=== PATIENT | male | born 1975 | race Caucasian/White ===

== ENCOUNTER → 2022-02-03 | Outpatient (CLI) | payer OTHER ==
[2022-02-03 09:21] LABS: HEMOGLOBIN 15.1 gm/dl (14.0-17.5); RED BLOOD COUNT 5.28 M/UL (4.20-5.50); WHITE BLOOD COUNT 10.3 K/UL (4.5-11.0)
[2022-02-03 10:08] LABS: BUN/CREATININE RATIO 25 (0-10)
[2022-02-04 08:16] LABS: HBSAG SCREEN Negative (Negative); HEP BE AG Negative (Negative); HEPATITIS B SURF AB QUANT <3.1 mIU/mL (Immunity>9.9); HIV AB/P24 AG SCREEN Non Reactive (Non Reactive)
[2022-02-04 17:13] LABS: TREPONEMA PALLIDUM ANTIBODIES Non Reactive (Non Reactive)
[2022-02-04 20:14] LABS: HEPATITIS C QUANTITATION HCV Not Detected IU/mL (.)
[2022-02-06 00:07] LABS: ALT (SGPT) P5P 20 IU/L (0-55); APOLIPOPROTEIN A-1 132 mg/dL (101-178); BILIRUBIN, TOTAL <0.1 mg/dL (0.0-1.2); FIBROSIS SCORE 0.19 (0.00-0.21); GGT 16 IU/L (0-65); HAPTOGLOBIN 72 mg/dL (23-355); NECROINFLAMMAT ACTIVITY GRADE A0-No activity (.); NECROINFLAMMAT ACTIVITY SCORE 0.07 (0.00-0.17)
== END ==
LOC: LAB 08:02
DX: Z11.59 Encounter for screening for other viral diseases (principal); Z71.89 Other specified counseling; B18.2 Chronic viral hepatitis C
CPT/HCPCS: 36415; 80048; 80076; 81596; 82105; 82140; 82172; 82247; 82977; 83010; 83540; 84460; 85027; 85610; 86317; 86704; 86708; 86780; 87340; 87350; 87389; 87522; 87902

== ENCOUNTER → 2022-04-30 | Outpatient (CLI) | payer OTHER | LOC: EXRD 09:51 | DX: B18.1 Chronic viral hepatitis B without delta-agent (principal); B18.2 Chronic viral hepatitis C; R16.1 Splenomegaly, not elsewhere classified | CPT/HCPCS: 76700 ==